=== PATIENT | female | born 1945 | race Caucasian/White ===

== ENCOUNTER → 2017-04-10 | Day surgery (SDC) | payer MEDICARE ==
[2017-04-09 12:45] LABS: BASOPHILS % 0.7 % (0.0-1.0); EOSINOPHILS # (AUTO) 0.1 (0.0-0.4); EOSINOPHILS % 1.6 % (0.0-6.0); HEMATOCRIT 37.4 % (34.2-44.1); HEMOGLOBIN 12.3 g/dL (12.0-16.0); LYMPHOCYTES # (AUTO) 2.1 (1.0-3.2); LYMPHOCYTES % 37.2 % (18.0-39.1); MEAN CORPUSCULAR HEMOGLOBIN 31.3 pg (28-32); MEAN CORPUSCULAR HGB CONC 32.9 g/dL (31-35); MEAN CORPUSCULAR VOLUME 95.2 fL (81-99); MONOCYTES # (AUTO) 0.4 (0.2-0.8); MONOCYTES % 6.3 % (4.4-11.3); NEUTROPHILS # (AUTO) 3.1 (2.1-6.9); NEUTROPHILS % 53.7 % (38.7-80.0); PLATELET COUNT 252 x10e3/uL (140-360); RED BLOOD COUNT 3.93 x10e6/uL (3.6-5.1); RED CELL DISTRIBUTION WIDTH 12.5 % (11.7-14.4)
--- NOTE | 2017-04-09 12:49 | Diagnostic Imaging Report ---
PROCEDURE: Frontal and lateral views of the chest. COMPARISON: Patients [facility], , CHEST 2 VIEWS, 12/17/2015, 12:51. INDICATIONS: PREOP FINDINGS: Lines/tubes: None. Lungs: Mild bibasilar subsegmental atelectasis associated with elevation of the right hemidiaphragm.. There is no evidence of pneumonia or pulmonary edema. Pleura: There is no pleural effusion or pneumothorax. Heart and mediastinum: The heart and the mediastinum are normal. Bones: No acute bony abnormality. Lower cervical fusion hardware. Multilevel spondylosis of the thoracic spine. IMPRESSION: 1. No acute cardiopulmonary disease. Bibasilar subsegmental atelectasis. Sandra Todd M.D. Dictated by: Sandra Todd M.D. on 04/09/2017 at 12:57 Electronically approved by: Sandra Todd M.D. on 04/09/2017 at 12:57
[2017-04-09 13:02] LABS: BLOOD UREA NITROGEN 12 mg/dL (7-26); BUN/CREATININE RATIO 17 (6-25); CALCIUM 9.6 mg/dL (8.4-10.2); CARBON DIOXIDE 27 mmol/L (22-29); CHLORIDE 106 mmol/L (98-107); CREATININE, SERUM 0.69 mg/dL (0.57-1.11); EST GLOMERULAR FILTRATION RATE > 60 ML/MIN (60-); GLUCOSE 94 mg/dL (74-118); SODIUM 141 mmol/L (136-145)
[~2017-04-10] MED LIST: ALEVE220 MG PO; AMITRIPTYLINE PO; ASPIR 8181 MG PO; ASPIRIN81 MG PO; ATIVAN0.5 MG PO; ATIVAN1 MG PO; BENEFIBER1 EAC1 PO; CEFOXITIN SOD 1 GM VIAL ONE; CICLOPIROX15 GM TOP; CLEAR EYES; CORICIDIN HBP1 EAC2 PO; DEXAMETHASONE SOD PHOS INJ 4 MG/ML VIAL ONE; DULCOLAX5 MG PO; FENTANYL CITRATE/PF 100MCG/2 ML INJ ONE; GLIMEPIRIDE1 MG PO; LEVOTHYROXINE75 MCG PO; LEVOTHYROXINE88 MCG PO; LIDOCAINE HCL 2% LOCAL INJ 5 ML SDV VIAL INJ ONE; LIDOCAINE JELLY 2% 10ML URO-JET ONE; LORAZEPAM0.5 MG PO; METFORMIN HCL500 MG PO; METOPROLOL TART25 MG PO; MIRALAX PO; MUPIROCIN22 GM TOP; OLANZAPINE5 MG PO; ONDANSETRON HCL INJ 2 MG/ML VIAL ONE; PANTOPRAZOLE SO40 MG PO; PHAZYME180 MG PO; PREMARIN0.625 MG PO; PRIMIDONE50 MG PO; PROPOFOL IV EMULSION 10 MG/ML 20 ML VIAL ONE; SEVOFLURANE INHAL SOLN 250 ML PEN BTL ONE; SIMVASTATIN20 MG PO; TRIAMCINOLONE A15 G1 TOP; TYLENOL WITH C1 EACH PO
--- NOTE | 2017-04-10 14:38 | Operative Report ---
DATE OF PROCEDURE: April 10, 2017 PREOPERATIVE DIAGNOSES: Lower abdominal pain, change in bowels, and rectal bleeding. POSTOPERATIVE DIAGNOSES: Lower abdominal pain, change in bowels, and rectal bleeding secondary to severe constipation and colonic angulation from pelvic adhesions. OPERATION PERFORMED: Colonoscopy. ANESTHESIA: General. COMPLICATIONS: None. ESTIMATED BLOOD LOSS: None. DESCRIPTION OF PROCEDURE: With the patient lying in bed in the lithotomy position under good general anesthesia, a rigid sigmoidoscope was introduced and slowly and carefully advanced. The patient had a large amount of stool in the rectum in spite of the full bowel prep that she had undergone. Also, this was aspirated; however, at about the 10 cm area, there was a very severe angulation of the rectosigmoid junction that precluded passage of the rigid scope any higher than that. Examination of the lower rectal area revealed no mucosal abnormalities. The patient had no significant hemorrhoids whatsoever. So, we decided that no hemorrhoidectomy would be needed as had been potentially planned. The rigid scope was then removed and a flexile colonoscope was introduced and slowly and carefully advanced. After significant time, we were able to get through the severe angulation in the rectosigmoid junction. This is more than likely secondary to the patient's previous pelvic surgery and maybe contributing to some degree to the patient's significant constipation issues as she may be having some problems evacuating around the severe angulation that was present in the rectosigmoid junction. The patient in spite of having had a full bowel prep had large amounts of stool throughout the colon. The scope was advanced all the way up into the right colon, but we were not able to get a good look at the mucosa because of the poor preparation, but no gross lesions were identified. The scope was then slowly and carefully withdrawn. The patient tolerated the procedure well and returned to the recovery room in stable condition. Job#: [id number] SAK
== END | disposition home or self-care (01) ==
LOC: OR 07:19
PROVIDERS: ATTEND Surgery
DX: K59.00 Constipation, unspecified (principal); I10 Essential (primary) hypertension; E11.9 Type 2 diabetes mellitus without complications; F79 Unspecified intellectual disabilities; Z01.810 Encounter for preprocedural cardiovascular examination; Z01.812 Encounter for preprocedural laboratory examination; Z01.818 Encounter for other preprocedural examination; Z79.82 Long term (current) use of aspirin
CPT/HCPCS: 36415 ×2; 45378; 71020; 80048; 82948; 85025; 93005; J0694; J1100; J2001; J2405

== ENCOUNTER → 2017-06-17 | Outpatient (CLI) | payer MEDICARE ==
[~2017-06-17] MED LIST changes: -CEFOXITIN SOD 1 GM VIAL ONE; -DEXAMETHASONE SOD PHOS INJ 4 MG/ML VIAL ONE; -FENTANYL CITRATE/PF 100MCG/2 ML INJ ONE; -LIDOCAINE HCL 2% LOCAL INJ 5 ML SDV VIAL INJ ONE; -LIDOCAINE JELLY 2% 10ML URO-JET ONE; -ONDANSETRON HCL INJ 2 MG/ML VIAL ONE; -PROPOFOL IV EMULSION 10 MG/ML 20 ML VIAL ONE; -SEVOFLURANE INHAL SOLN 250 ML PEN BTL ONE
--- NOTE | 2017-06-18 09:31 | Diagnostic Imaging Report ---
Exam: Lumbar spine MRI without IV contrast History: Low back pain with radiculopathy. Comparison studies: Lumbar spine x-ray 10/23/2016. Technique: Sagittal and axial T2 , sagittal T1 and IR, axial spin density oblique. Coronal T2. Intravenous contrast: None Findings: Number of lumbar vertebral bodies: 5. Alignment: Normal lordosis. No scoliosis. Soft tissues: No T2 hyperintense inflammatory changes. Paraspinal muscles: No signal abnormalities. Well-preserved. No atrophic changes Lower thoracic cord: Normal in signal and morphology. The tip of the conus is at L1-L2. Cauda equina: No masses. No arachnoiditis. Vertebrae: No compression fractures, infection or neoplasm. Degenerative changes: L1-L2: Mild loss of T2/STIR disc signal. Patent canal and foramina. L2-L3: Moderately degenerated disc with loss of disc height and T2 disc signal. There are degenerative endplate changes with mild degenerative endplate edema. Disc bulge, thickened ligamentum flavum and facet arthrosis result in mild to moderate canal and bilateral foraminal stenosis. L3-L4: Moderately degenerated disc. Disc bulge, thickened ligamentum flavum and facet arthrosis result in moderate canal stenosis and mild bilateral foraminal stenosis. L4-L5: Moderately degenerated disc. There are degenerative endplate changes mild endplate edema. Asymmetric right disc bulge with superimposed right subarticular and foraminal disc extrusion, thickened ligamentum flavum and facet arthrosis with moderate canal stenosis, mild bilateral foraminal stenosis (right greater than left) and right subarticular stenosis with potential compression of the right L5 nerve root. There is mild inferior migration of the disc extrusion within the right ventral epidural space. L5-S1: Mildly degenerated disc. Disc bulge asymmetric to the left, thickened ligamentum flavum and moderate bilateral facet arthrosis result in mild canal stenosis and bilateral foraminal stenosis. There is mild widening of the left facet joint by small joint effusion. IMPRESSION: 1. Multilevel disc degeneration, worse/moderate from L2 to L5. 2. Multilevel degenerative canal stenosis (mild to moderate L2-L3, moderate at L3-L4 and at L4-L5 and mild at L5-S1). 3. Potential compression of the right L5 subarticular nerve root at L4-L5 due to a disc bulge and disc extrusion. 4. Mild degenerative foraminal stenosis from L2 to S1. 5. Multilevel facet arthrosis, worse/moderate bilaterally at L5-S1. Signed by: Dr. Haris Telles M.D. on 06/18/2017 9:27 AM
== END ==
LOC: MRI 14:06
PROVIDERS: ATTEND Psychiatry & Neurology Clinical Neurophysiology
DX: M54.16 Radiculopathy, lumbar region (principal)
CPT/HCPCS: 72148

== ENCOUNTER 2017-07-30 09:32 | Observation (INO) | payer MEDICARE ==
[2017-07-28 16:21] LABS: BASOPHILS # (AUTO) 0.1 (0.0-0.1); BASOPHILS % 1.1 % (0.0-1.0); EOSINOPHILS # (AUTO) 0.1 (0.0-0.4); EOSINOPHILS % 1.8 % (0.0-6.0); HEMATOCRIT 37.4 % (34.2-44.1); LYMPHOCYTES % 34.5 % (18.0-39.1); MEAN CORPUSCULAR HEMOGLOBIN 30.1 pg (28-32); MEAN CORPUSCULAR HGB CONC 32.1 g/dL (31-35); MEAN CORPUSCULAR VOLUME 93.7 fL (81-99); MONOCYTES # (AUTO) 0.3 (0.2-0.8); MONOCYTES % 5.6 % (4.4-11.3); NEUTROPHILS # (AUTO) 3.3 (2.1-6.9); NEUTROPHILS % 56.8 % (38.7-80.0); PLATELET COUNT 231 x10e3/uL (140-360); RED BLOOD COUNT 3.99 x10e6/uL (3.6-5.1)
[2017-07-28 16:32] LABS: INR 0.96
[2017-07-28 16:33] LABS: PARTIAL THROMBOPLASTIN TIME 28.4 seconds (23.8-35.5)
[2017-07-28 16:40] LABS: ANION GAP 12.3 mmol/L (8-16); BLOOD UREA NITROGEN 16 mg/dL (7-26); BUN/CREATININE RATIO 21 (6-25); CALCIUM 9.9 mg/dL (8.4-10.2); CARBON DIOXIDE 27 mmol/L (22-29); CHLORIDE 103 mmol/L (98-107); CREATININE, SERUM 0.77 mg/dL (0.57-1.11); EST GLOMERULAR FILTRATION RATE > 60 ML/MIN (60-); GLUCOSE 120 mg/dL (74-118); POTASSIUM 4.3 mmol/L (3.5-5.1); SODIUM 138 mmol/L (136-145)
--- NOTE | 2017-07-28 16:44 | Diagnostic Imaging Report ---
PROCEDURE: X-RAY CHEST, TWO VIEWS COMPARISON: Patients [facility], DX, CHEST 2 VIEWS, 04/09/2017, 12:15. INDICATIONS: PRE-OP FINDINGS: LUNGS: No chronic appearing basilar interstitial changes are again noted. PLEURA: No effusions or pneumothorax. HEART \T\ MEDIASTINUM: The heart is within normal size-limits. BONES \T\ SOFT TISSUES: There are degenerative changes of the spine. Fixation plate overlies the lower cervical spine. CONCLUSION: No acute thoracic abnormality. Deni Baldwin D.O. Dictated by: Deni Baldwin D.O. on 07/28/2017 at 16:45 Electronically approved by: Deni Baldwin D.O. on 07/28/2017 at 16:45
[~2017-07-30] VITALS: Ht 165.1 cm; Wt 56.7 kg
[~2017-07-30 09:32] MED LIST changes: +AMITRIPTYLINE H10 MG PO; +BACITRACIN 50,000 UNIT VIAL ONE; +BUPIVACAINE 0.5%/EPI 30 ML SDV INJ ONE; +CICLODAN 0.77%544 GM TOP; +CONTOUR NEXT1 EACH; +CORICIDIN HBP1 EAC1 PO; +GELATIN SPONGE SZ 100 ONE; +JANUVIA100 MG PO; +MECLIZINE HCL12.5 MG PO; +NASOCORT; +REFRESH TEARS15 ML OP/OT; +THROMBIN FOR SOLN 5,000 UNIT VIAL ONE; +TYLENOL EXTRA500 MG PO
--- OUTSIDE RECORDS SUMMARY | 2017-07-30 09:35 | XMS REPORT ---
Author Author [facility] Address Unknown Phone Unavailable Care Team Providers Care Applications Intern Name Role Phone TRISTAN POST Unavailable Unavailable THURSDAY, BRETT Unavailable Unavailable PRADEEP GARCIA Unavailable Unavailable Problems This patient has no known problems. Allergies, Adverse Reactions, Alerts This patient has no known allergies or adverse reactions. Medications This patient has no known medications. Results Test Description Test Time Test Comments Text Results Atomic Results Result Comments CHEST [address] [facility] [address] [place] [address] Patient Name: JANE GARCIA MR #: [id number] : 1945 Age/Sex: 71/F Req #: [id number] Adm Physician: Ordered by: TRISTAN POST MD Report #: [id number] Location: OR Room/Bed: Procedure: [id number] DX/CHEST 2 VIEWS Exam Date: 07/28/17 Exam Time: 1600 REPORT STATUS: Signed PROCEDURE: X-RAY CHEST, TWO VIEWS COMPARISON: [facility], DX, CHEST 2 VIEWS, 04/09/2017, 12:15. INDICATIONS: PRE-OP FINDINGS: LUNGS: No chronic appearing basilar interstitial changes are again noted. PLEURA: No effusions or pneumothorax. HEART T MEDIASTINUM: The heart is within normal size- limits. BONES T SOFT TISSUES: There are degenerative changes of the spine. Fixation plate overlies the lower cervical spine. CONCLUSION : No acute thoracic abnormality. Devante Baldwin D.O. Dictated by: Devante Baldwin D.O. on 07/28/2017 at 16:45 Electronically approved by: Devante Baldwin D.O. on 07/28/2017 at 16:45 Dictated By: DEVANTE BALDWIN DO 44 COPY TO: TRISTAN POST MD MRI SPINE LUMBAR WO [place] [address] Patient Name: JANE GARCIA MR #: [id number] : 1945 Age/Sex: 71/F Req # : [id number] Adm Physician: Ordered by: BRETT HSU MD Report #: [id number] Location: MRI Room/Bed: Procedure: [id number] MRI/MRI SPINE LUMBAR WO Exam Date: Exam Time: REPORT STATUS: Signed Exam: Lumbar spine MRI without IV contrast History: Low back pain with radiculopathy. Comparison studies: Lumbar spine x-ray 10/23/2016. Technique: Sagittal and axial T2 , sagittal T1 and IR, axial spin density oblique. Coronal T2. Intravenous contrast: None Findings: Number of lumbar vertebral bodies: 5. Alignment: Normal lordosis. No scoliosis. Soft tissues: No T2 hyperintense inflammatory changes. Paraspinal muscles: No signal abnormalities. Well-preserved. No atrophic changes Lower thoracic cord: Normal in signal and morphology. The tip of the conus is at L1-L2. Cauda equina: No masses. No arachnoiditis. Vertebrae: No compression fractures, infection or neoplasm. Degenerative changes: L1-L2: Mild loss of T2/STIR disc signal. Patent canal and foramina. L2-L3: Moderately degenerated disc with loss of disc height and T2 disc signal. There are degenerative endplate changes with mild degenerative endplate edema. Disc bulge, thickened ligamentum flavum and facet arthrosis result in mild to moderate canal and bilateral foraminal stenosis. L3-L4: Moderately degenerated disc. Disc bulge, thickened ligamentum flavum and facet arthrosis result in moderate canal stenosis and mild bilateral foraminal stenosis. L4-L5: Moderately degenerated disc. There are degenerative endplate changes mild endplate edema. Asymmetric right disc bulge with superimposed right subarticular and foraminal disc extrusion, thickened ligamentum flavum and facet arthrosis with moderate canal stenosis, mild bilateral foraminal stenosis (right greater than left) and right subarticular stenosis with potential compression of the right L5 nerve root. There is mild inferior migration of the disc extrusion within the right ventral epidural space. L5-S1: Mildly degenerated disc. Disc bulge asymmetric to the left, thickened ligamentum flavum and moderate bilateral facet arthrosis result in mild canal stenosis and bilateral foraminal stenosis. There is mild widening of the left facet joint by small joint effusion. IMPRESSION: 1. Multilevel disc degeneration, worse/moderate from L2 to L5. 2. Multilevel degenerative canal stenosis (mild to moderate L2-L3, moderate at L3-L4 and at L4-L5 and mild at L5-S1). 3. Potential compression of the right L5 subarticular nerve root at L4-L5 due to a disc bulge and disc extrusion. 4. Mild degenerative foraminal stenosis from L2 to S1. 5. Multilevel facet arthrosis, worse/ moderate bilaterally at L5-S1. Signed by: Dr. Africa Telles M.D. on 2017 9:27 AM Dictated By: AFRICA TELLES MD 6 Transcribed By: BYRON on 06/18/17926 COPY TO: THURSDAYBRETT MD CHEST 2 VIEWS [place] [address] Patient Name: JANE GARCIA MR #: [id number] : 1945 Age/Sex: 71/F Req #: [id number] Adm Physician: Ordered by: PRADEEP GARCIA MD Report #: [id number] Location: OR Room/Bed: Procedure: [id number] DX/CHEST 2 VIEWS Exam Date: 04/09/17 Exam Time: 1220 REPORT STATUS: Signed PROCEDURE: Frontal and lateral views of the chest. COMPARISON: [facility], DX, CHEST 2 VIEWS, 2015, 12:51. INDICATIONS: PREOP FINDINGS: Lines/tubes: None. Lungs: Mild bibasilar subsegmental atelectasis associated with elevation of the right hemidiaphragm.. There is no evidence of pneumonia or pulmonary edema. Pleura: There is no pleural effusion or pneumothorax. Heart and mediastinum: The heart and the mediastinum are normal. Bones: No acute bony abnormality. Lower cervical fusion hardware. Multilevel spondylosis of the thoracic spine. IMPRESSION: 1. No acute cardiopulmonary disease. Bibasilar subsegmental atelectasis. Sandra Oseguera M.D. Dictated by: Sandra Oseguera M.D. on 2017 at 12:57 Electronically approved by: Sandra Oseguera M.D. on 04/09/2017 at 12:57 Dictated By: JEFF OSEGUERA MD, MD 1257 Transcribed By : GUSTAVO on 04/09/17 1257 COPY TO: PRADEEP GARCIA MD SPINE CERVICAL AP LAT FLEX EXT [place] [address] Patient Name: JANE GARCIA MR #: [id number] : 1945 Age/Sex: 71/F Req #: [id number] Adm Physician: Ordered by: TRISTAN POST MD Report #: [id number] Location: [facility] Room/Bed: Procedure: [id number] DX/SPINE CERVICAL AP LAT FLEX EXT Exam Date: 02/12/17 Exam Time: 1140 REPORT STATUS: Signed PROCEDURE : C-SPINE AP AND LAT WITH FLEX AND EXT COMPARISON: MRI cervical spine 12/20/16. INDICATIONS: POST CERVICAL SPINE SURGERY FINDINGS: The vertebral bodies are visualized to T1. The patient is status post anterior cervical discectomy and fusion from C4-C6. The hardware is intact without evidence of lucency to suggest loosening. The alignment is maintained on neutral lateral image. There is no evidence of motion with flexion or extension. There is disc space narrowing and endplate osteophytosis at C6-7. The facets and spinous processes are normally aligned. Alignment is maintained on AP image. The skull base and upper chest are unremarkable. There are 2 lisa posterior to C7, likely outside the patient. CONCLUSION: Postoperative changes as described above. No motion with flexion or extension. Dictated by : Goyo Henderson M.D. on 02/12/2017 at 12:56 Electronically approved by: Goyo Henderson M.D. on 02/12/2017 at 12:56 Dictated By : GOYO HENDERSON MD 1256 COPY TO: TRISTAN POST MD MRI SPINE CERVICAL WO [place] [address] Patient Name: JANE GARCIA MR #: [id number] : 1945 Age/Sex: 71/F Req # : [id number] Adm Physician: Ordered by: ARACELISBRETT PETERS MD Report #: [id number] Location: MRI Room/Bed: Procedure: [id number] MRI/MRI SPINE CERVICAL WO Exam Date: 12/19/16 Exam Time: 1550 REPORT STATUS: Signed Examination: MRI SPINE CERVICAL WITHOUT CONTRAST History: Neck pain. Spasticity, gait imbalance. Comparison studies: None Technique: Sagittal T1, T2 and IR, axial T2 and axial gradient echo intravenous contrast: None Findings: Alignment : Straightening of normal lordosis. No scoliosis. Cervicomedullary junction: No abnormalities. Patent foramen magnum. Soft tissues: No T2 hyperintense inflammatory changes. Spinal cord: Normal in size and signal from the foramen magnum through T1. Vertebrae: No fractures, infection or neoplasm. Degenerative changes: C1-C2: No abnormalities. C2-C3: Bilateral facet arthropathy and mild ligamentum flavum thickening. No foraminal or canal stenosis. C3-C4: Asymmetric to the left disc osteophyte complex and bilateral uncovertebral and left facet arthropathy result in moderate right and severe left foraminal narrowing and mild canal stenosis. C4-C5 : Diffuse disc osteophyte complex, ligamentum flavum thickening and bilateral uncovertebral arthropathy result in severe canal and bilateral foraminal stenosis. C5-C6: Asymmetric to the right disc osteophyte complex, ligamentum flavum thickening and bilateral uncovertebral arthropathy result in severe canal and severe right and moderate left foraminal stenosis. C6-C7: Asymmetric to the right disc osteophyte complex and bilateral uncovertebral arthropathy result in moderate bilateral foraminal narrowing. No canal stenosis. C7-T1: No abnormalities. IMPRESSION: 1. Degenerative changes from C2-C3 through C6-C7 with severe canal stenosis C4- C5 and C5-C6 and mild canal stenosis at C3-C4. 2. Degenerative foraminal stenosis from C3-C4 through C6-C7, as above. Signed by: Dr. Ester Voss M.D. on 12/20/2016 11:42 AM Dictated By: ESTER VOSS MD 1142 Transcribed By: BYRON on 12/20/16 1142 COPY TO: BRETT HSU MD
[2017-07-30] MEDS ORDERED: CEFAZOLIN SOD 1 GM VIAL ONE (09:58)
[2017-07-30] MEDS ORDERED: THROMBIN FOR SOLN 5,000 UNIT VIAL ONE (11:54)
[2017-07-30] MEDS ORDERED: LIDOCAINE HCL (LTA) 4 ML SOLN ONE (12:11)
[2017-07-30] MEDS ORDERED: ACETAMINOPHEN 1000 MG/100 ML 100 ML IV ONE (12:11)
[2017-07-30] MEDS: LACTATED RINGER'S 1,000 ML IV SCH ×2 (12:37→20:22)
[2017-07-30] MEDS ORDERED: MECLIZINE HCL 12.5 MG TAB PO SCH (12:45)
[2017-07-30] MEDS ORDERED: ONDANSETRON HCL INJ 2 MG/ML VIAL IV PRN (12:45)
[2017-07-30] MEDS ORDERED: MAGNESIUM/ALUMINUM/SIMETHICONE 30 ML UDC PO PRN (12:45)
[2017-07-30] MEDS ORDERED: MUPIROCIN 2% OINT 22 GM TUBE TOP SCH (12:45)
[2017-07-30] MEDS ORDERED: ZOLPIDEM TARTRATE 5 MG TAB PO PRN (12:45)
[2017-07-30] MEDS ORDERED: TRIAMCINOLONE ACET 0.1% CREAM 15 GM TUBE TOP PRN (12:45)
[2017-07-30] MEDS ORDERED: OXYCODONE/ACETAMINOPHEN 5-325 1 EACH TABLET PO PRN (12:45)
[2017-07-30] MEDS ORDERED: PROMETHAZINE HCL (IM) 25 MG/ML VIAL IM PRN (12:45)
[2017-07-30] MEDS ORDERED: ACETAMINOPHEN 325 MG TAB PO PRN (12:45)
[2017-07-30] MEDS ORDERED: MORPHINE SULFATE 5 MG/ML VIAL IM PRN (12:45)
[2017-07-30] MEDS ORDERED: TRIAMCINOLONE ACET 0.1% CREAM 15 GM TUBE TOP SCH (12:45)
[2017-07-30] MEDS ORDERED: CARISOPRODOL 350 MG TAB PO PRN (12:45)
[2017-07-30] MEDS ORDERED: MECLIZINE HCL 12.5 MG TAB PO PRN (13:00)
[2017-07-30] MEDS ORDERED: MUPIROCIN 2% OINT 22 GM TUBE TOP PRN (13:00)
[2017-07-30] MEDS ORDERED: FENTANYL CITRATE/PF 100MCG/2 ML INJ ONE ×2 (13:00→17:34)
[2017-07-30 13:52] VITALS: BP 165/72
[2017-07-30] MEDS ORDERED: CEFAZOLIN SOD 1 GM/NS 50ML 50 ML IV SCH (14:00)
--- NOTE | 2017-07-30 14:17 | Operative Report ---
DATE OF PROCEDURE: July 30, 2017 PREOPERATIVE DIAGNOSIS: Right L4-L5 disk herniation with radiculopathy. POSTOPERATIVE DIAGNOSIS: Right L4-L5 disk herniation with radiculopathy. PROCEDURE: Right L4-L5 laminotomy, medial facetectomy and microsurgical diskectomy, [id number]. ANESTHESIA: General. INDICATIONS: The patient is a woman who presents with a right L4-5 disk herniation with L5 radiculopathy and was taken to the operating room for microsurgical diskectomy. PROCEDURE: After induction of general anesthesia, the patient was placed on the operating table in prone position over a Tom frame. Lumbar region was prepped and draped in a sterile fashion. A preoperative x-ray was obtained. A small midline incision was created. Lumbar fascia was opened to the right of midline, and subperiosteal dissection was carried out to expose the right side of the L4 and L5 laminae and the medial aspect of the facet joint. A 2nd x-ray confirmed correct localization. The operating microscope was brought in. A high-speed drill equipped with a roberto bur was used to drill the inferior aspect of lamina of L4, the medial rim of the L4-5 facet joint and the superior aspect of the lamina of L5 on the right side. The ligamentum flavum was resected, and the dura and the right L5 nerve root were exposed. Nerve root was slightly retracted medially. The herniated disk material came into view. The posterior annulus of the disk and posterior longitudinal ligament were incised, and the subligamentous disk herniation was retrieved and removed. The loose contents of the disk were evacuated with curettes and pituitary rongeurs. Meticulous hemostasis was secured. The incision was closed with #0 and 2-0 Vicryl sutures and 3-0 Monocryl sutures. A dressing was applied. The patient was awakened, extubated and taken to the postanesthesia care unit in stable condition. No intraoperative complications were encountered. Estimated blood loss was minimal. Job#: [id number]
[2017-07-30] MEDS: HYDROMORPHONE 2MG/ML INJ IV PRN ×2 (14:41→20:19)
[2017-07-30 14:50] VITALS: BP 165/72
[2017-07-30 15:34] VITALS: BP 134/56
[2017-07-30] MEDS ORDERED: METFORMIN HCL 500 MG TAB PO SCH (17:00)
[2017-07-30] MEDS ORDERED: NON-FORMULARY MEDICATION (Naproxen Sodium (Aleve) 220 MG) PO SCH (17:00)
[2017-07-30] MEDS: CEFAZOLIN SOD 1 GM VIAL IV SCH (17:10)
[2017-07-30] MEDS: METOPROLOL TARTRATE 25 MG TAB PO SCH (17:10)
[2017-07-30] MEDS ORDERED: EPHEDRINE SULFATE INJ 50 MG/10 ML SYR ONE (17:18)
[2017-07-30] MEDS ORDERED: DESFLURANE 240 ML BTL INH ONE (17:18)
[2017-07-30] MEDS ORDERED: LIDOCAINE HCL 2% JELLY 5 ML TUBE ONE (17:18)
[2017-07-30] MEDS ORDERED: PROPOFOL IV EMULSION 10 MG/ML 20 ML VIAL ONE (17:18)
[2017-07-30] MEDS ORDERED: DEXAMETHASONE SOD PHOS INJ 4 MG/ML VIAL ONE (17:18)
[2017-07-30] MEDS ORDERED: LIDOCAINE HCL 2% LOCAL INJ 5 ML SDV VIAL INJ ONE (17:18)
[2017-07-30] MEDS ORDERED: ROCURONIUM BROMIDE 10 MG/ML 5ML VIAL ONE (17:18)
[2017-07-30] MEDS ORDERED: ONDANSETRON HCL INJ 2 MG/ML VIAL ONE (17:18)
[2017-07-30 20:00] VITALS: BP 130/63
[2017-07-30] MEDS ORDERED: AMITRIPTYLINE HCL 25 MG TAB PO SCH (21:00)
[2017-07-30] MEDS ORDERED: PHAZYME PO SCH (21:00)
[2017-07-30] MEDS ORDERED: SIMVASTATIN 20 MG TAB PO SCH (21:00)
[2017-07-30] MEDS ORDERED: SIMETHICONE 250 MG PO SCH (21:00)
[2017-07-31] VITALS: BP 117/55
[2017-07-31] MEDS: CEFAZOLIN SOD 1 GM VIAL IV SCH ×2 (00:35→08:00)
[2017-07-31] MEDS: HYDROMORPHONE 2MG/ML INJ IV PRN (03:09)
[2017-07-31 04:00] VITALS: BP 119/56
[2017-07-31] MEDS ORDERED: LEVOTHYROXINE SODIUM 75 MCG TAB PO SCH ×2 (06:00→09:00)
[2017-07-31 07:40] VITALS: BP 119/56
[2017-07-31] MEDS: METOPROLOL TARTRATE 25 MG TAB PO SCH (07:59)
[2017-07-31 08:00] VITALS: BP 116/56
[2017-07-31] MEDS ORDERED: METFORMIN HCL 500 MG TAB PO SCH (08:00)
[2017-07-31] MEDS ORDERED: SIMVASTATIN 20 MG TAB PO SCH (09:00)
[2017-07-31] MEDS ORDERED: AMITRIPTYLINE HCL 10 MG TAB PO SCH (09:00)
[2017-07-31] MEDS ORDERED: PANTOPRAZOLE SOD 40 MG TABEC PO SCH (09:00)
[2017-07-31] MEDS ORDERED: SITAGLIPTIN 100 MG TAB PO SCH (09:00)
== END 2017-07-31 09:31 | disposition home or self-care (01) ==
LOC: OR 09:32 → IMCU 13:02
PROVIDERS: ADMIT Neurological Surgery; ATTEND Neurological Surgery
DX: M51.16 Intervertebral disc disorders with radiculopathy, lumbar region (principal); E11.9 Type 2 diabetes mellitus without complications; I10 Essential (primary) hypertension; E78.5 Hyperlipidemia, unspecified; E03.9 Hypothyroidism, unspecified; K21.9 Gastro-esophageal reflux disease without esophagitis
CPT/HCPCS: 36415 ×3; 63047; 71046; 72020; 80048; 82948 ×2; 85025; 85610; 85730; 86850; 86900; 88304; 93005; G0378 ×2; J0690 ×2; J1100; J1170 ×2; J2001 ×2; J2270; J2405

== ENCOUNTER 2018-04-19 14:00 | Outpatient (RCR) | payer MEDICARE ==
[~2018-04-19 14:00] MED LIST changes: -BACITRACIN 50,000 UNIT VIAL ONE; -BUPIVACAINE 0.5%/EPI 30 ML SDV INJ ONE; -GELATIN SPONGE SZ 100 ONE; -THROMBIN FOR SOLN 5,000 UNIT VIAL ONE
--- NOTE | 2018-04-19 15:49 | NUR ---
Patient Name: Mounika Bello: 1945 Age/Sex: 72/femaleOrdering Physician: Justice Paez MD Clinical Swallow Evaluation/Initial Treatment Session Patient is a 72 year old female with diagnosis of dysphagia and orders for NMES to treat dysphagia after OP MBS at [facility]. Patient completed a modified barium swallow (MBS) study on 02/15/18. Thin liquids, nectar thick liquids, thin puree, thick puree, mixed texture and cracker trials administered. Pt presented with moderate oral dysphagia and mild pharyngeal dysphagia c/b premature spillage to the valleculae and moderate valleculear residue following PO trials. Double swallow an effective strategy in clearing pharyngeal residue. Dysphagia judged to be secondary to tongue base weakness. Recommendation made for Neuromuscular Electrical Stimulation (NMES) with VitalStim Therapy and traditional dysphagia therapy with pharyngeal exercises. Pt was seen with family present. Oral motor exam revealed function with mild deficits, lingual movement and strength reduced. Patient tolerates room air. Hearing appeared to be WFL. Speech and language skills were reduced at baseline with limited verbalizations and moderate receptive deficits present. Family reports recent slowed PO intake. Provided extensive education re: need for therapy, purpose of exercises and NMES, and future plan of care. Pt indicated understanding. Education provided as indicated. All questions were answered. Pt indicated that they can attend therapy 3x/week x 4 weeks Impressions: Pt presents with mild-mod dysphagia characterized by moderate pharyngeal residue and premature spillage. Pt is an excellent candidate for dysphagia exercises and NMES for improvement of strength and coordination of swallow. Recommendations: 1.Dysphagia therapy to include traditional exercises and NMES 3X/week for 4 weeks for a total of 12 treatment sessions 2.Home exercise program 3.Repeat MBS in 4 weeks with new goals to be determined at that time [employer] Goal: Pt will tolerate least restrictive diet without s/s of aspiration as judged by an objective evaluation. Short Term Goals: 1.Pt will complete 3 repetitions of a set of dysphagia exercises to improve laryngeal elevation, base of tongue retraction, and laryngeal closure, 10 repetitions per exercise, with minimal cues. 2.Pt will tolerate NMES for 45 60 minutes with no clinical s/s of aspiration to improve strength of pharyngeal constrictors, hyolaryngeal excursion, and safety with po intake. 3.Pt will complete home dysphagia exercise program targeting laryngeal elevation, base of tongue strength, and cricopharyngeal function independently. 4.Pt will follow aspiration precautions with independence. 5.Pt will participate in a repeat Modified Barium Swallow study to objectively re-assess swallow safety and function and determine safest diet. Marry Oliveira M.S. [facility] Date of Session: 04/19/18 Dysphagia Evaluation/initial treatment session X 60 minutes Physicians signature below certifies medical necessity for these skilled interventions Physician SignatureDate NOMS Rating for Swallowing: Level 5
--- NOTE | 2018-04-19 15:55 | NUR ---
TX NOTES to accompany clinical swallow evaluation from 04/19/18 S: Pt alert and cooperative, no c/o pain, family present O:Short Term Goals: 1.Pt will complete 3 repetitions of a set of dysphagia exercises to improve laryngeal elevation, base of tongue retraction, and laryngeal closure, 10 repetitions per exercise, with minimal cues. Completed 2.Pt will tolerate NMES for 45 60 minutes with no clinical s/s of aspiration to improve strength of pharyngeal constrictors, hyolaryngeal excursion, and safety with po intake. Placement 3b was used to target the mylohyoid muscle, the anterior belly of the digastric muscle, the sternohyoid muscle, the omohyoid muscle, the geniohyoid muscle, and the middle pharyngeal constrictors. Channel 1 of the electrodes was aligned horizontally just above the hyoid bone and channel 2 of the electrodes was aligned horizontally at the level of the thyroid notch. This placement was used to improve base of tongue strength, pharyngeal constriction, and UES function. Pt tolerated 11.5 mA for 50 minutes while drinking thin liquids, eating pudding and hard candy. Throat clear x 15 and cough x 1 3.Pt will complete home dysphagia exercise program targeting laryngeal elevation, base of tongue strength, and cricopharyngeal function independently. To be discussed at next treatment session 4.Pt will follow aspiration precautions with independence. Discussed with family member, famlily member reported pt can not follow commands well 5.Pt will participate in a repeat Modified Barium Swallow study to objectively re-assess swallow safety and function and determine safest diet. Not yet indicated A: Pt tolerated session well, currently has low mA tolerance beginning at 6.0 mA and ending session at 11.5 mA. Pt ate pudding quickly with no outward s/s of distress. TC noted to last the rest of the session. P: CPOC, report faxed to Dr. Justice Paez MD
--- NOTE | 2018-05-03 09:21 | NUR ---
ST NOTE: Pt unable to attend therapy today, her cat is ill and she has a vet apt at the time of her ST visit, she will return on Thursday
== END 2018-05-06 ==
LOC: ST 14:00
PROVIDERS: ATTEND Otolaryngology
DX: R13.10 Dysphagia, unspecified (principal)
CPT/HCPCS: 97139

== ENCOUNTER → 2018-10-09 | Day surgery (SDC) | payer MEDICARE ==
[2018-10-05 17:05] LABS: BASOPHILS # (AUTO) 0.1 (0.0-0.1); BASOPHILS % 0.9 % (0.0-1.0); EOSINOPHILS # (AUTO) 0.1 (0.0-0.4); EOSINOPHILS % 2.1 % (0.0-6.0); HEMATOCRIT 35.2 % (34.2-44.1); LYMPHOCYTES # (AUTO) 2.2 (1.0-3.2); LYMPHOCYTES % 38.2 % (18.0-39.1); MEAN CORPUSCULAR HEMOGLOBIN 28.7 pg (28-32); MEAN CORPUSCULAR HGB CONC 31.3 g/dL (31-35); MEAN CORPUSCULAR VOLUME 91.9 fL (81-99); MONOCYTES # (AUTO) 0.4 (0.2-0.8); MONOCYTES % 7.6 % (4.4-11.3); NEUTROPHILS # (AUTO) 2.9 (2.1-6.9); NEUTROPHILS % 50.9 % (38.7-80.0); PLATELET COUNT 248 x10e3/uL (140-360); RED BLOOD COUNT 3.83 x10e6/uL (3.6-5.1); RED CELL DISTRIBUTION WIDTH 14.3 % (11.7-14.4)
[~2018-10-09] MED LIST changes: +ARICEPT5 MG PO; +FENTANYL CITRATE/PF 100MCG/2 ML INJ ONE; +JENTADUETO 2.51 EAC2 PO; +LIDOCAINE HCL 2% LOCAL INJ 5 ML SDV VIAL INJ ONE; +NATEGLINIDE60 MG PO; +PROPOFOL IV EMULSION 10 MG/ML 50 ML VIAL ONE; +RANITIDINE HCL300 M1 PO
[2018-10-09 08:50] VITALS: BP 159/76
--- NOTE | 2018-10-09 13:01 | Operative Report ---
DATE OF PROCEDURE: 10/09/2018 SURGEON: Maverick Linn MD PROCEDURE: Esophagogastroduodenoscopy with biopsies and esophageal dilatation. INDICATIONS FOR EGD: Dysphagia to solids. MEDICATION: The patient was done under MAC, please see anesthesiologist's note. PROCEDURE IN DETAIL: With the patient in left lateral decubitus position, flexible fiberoptic Olympus gastroscope was introduced into the esophagus under direct visualization without any difficulty. There was some patchy erythema noted in distal esophagus. There was a mild stricture noted at the GE junction that was dilated to size 52-[place] Villalobos. The scope was then advanced with ease into the stomach traversing a small sliding hiatal hernia. Mucosa overlying the antrum and the body revealed some patchy erythema and [id number] edema and biopsies were obtained and sent to stain for H pylori. Several hyperplastic-appearing polyps were noted in the body of the stomach and some were partially excised with the cold biopsy forceps. Pylorus was of normal contour and shape, it was intubated with ease and the scope was advanced all the way to the second portion of the duodenum. The scope was then withdrawn slowly and mucosa overlying the proximal second portion and the duodenal bulb appeared to be within normal limits. The scope was then withdrawn back into the stomach and retroflexed and mucosa overlying the fundus and the cardia appeared to be within normal limits. The scope was then straightened out, it was subsequently withdrawn. The patient tolerated procedure well. IMPRESSION: 1. Distal esophagitis, mild. 2. Esophageal stricture at GE junction, dilated to size 52-[place] Villalobos. 3. Small sliding hiatal hernia. 4. Gastritis, biopsied, biopsies sent to stain for H pylori. 5. Gastric polyps, body, hyperplastic appearing, some partially excised with the cold biopsy forceps. PLAN: Follow up histology. Continue Protonix 40 mg one p.o. q.a.m. a.c. Maverick Linn MD [facility]/JIML /[id number] cc: Keyshawn Linn MD
--- OUTSIDE RECORDS SUMMARY | 2018-10-11 12:13 | XMS REPORT | Continuity of Care Document ---
Author Author [employer] Address Unknown Phone Unavailable Care Team Providers Care Capacity Analyst Name Role Phone [facility] Information [facility] Unavailable Unavailable Problems No Data Provided for This Section Medications Medication Details Route Status Patient Instructions Ordering Provider Order Date Source Bisacodyl (Dulcolax) 5 Mg Tablet., Mg Oral Bedtime Active 07/28/2017 [facility] Blood Sugar Diagnostic (Contour Next) 1 Each Strip, Active 07/28/2017 [facility] Clear Eyes , Active 07/28/2017 [facility] Glimepiride 1 Mg Tablet, 1 Mg Oral Daily Active 07/28/2017 [facility] Simethicone (Phazyme) 180 Mg Capsule, 250 Mg Oral Daily Active 07/28/2017 [facility] Lorazepam 0.5 Mg Tablet, 0.5 Mg Oral Four Times Daily Active 04/10/2017 [facility] Miralax , Oral As Needed Active 04/10/2017 [facility] Mupirocin 22 Gm Oint...g., 22 Gm Topically As Needed Active 04/10/2017 [facility] Primidone 50 Mg Tablet, 50 Mg Oral Twice A Day Active 04/10/2017 [facility] Wheat Dextrin (Benefiber) 1 Each Powd.pack, 2 Tbs Oral Daily Active 04/10/2017 [facility] Aspirin (Aspir 81) 81 Mg Tablet., 81 Mg Oral Daily Active 12/21/2015 [facility] Ciclopirox Olamine (Ciclopirox) 15 Gm Cream..g., 15 Gm Topically As Needed Active 12/21/2015 [facility] Guaifenesin/Dextromethorphan (Coricidin Hbp Softgel) 1 Each Capsule, Oral As Needed Active 12/21/2015 [facility] Amitriptyline , Oral Bedtime Active 12/19/2015 [facility] Lorazepam (Ativan) 1 Mg Tablet, 1 Mg Oral Bedtime Active 12/19/2015 [facility] Levothyroxine Sodium 88 Mcg Tablet, 0.075 Mcg Oral Daily Active 08/09/2015 [facility] Lorazepam (Ativan*) 0.5 Mg Tablet, 0.5 Mg Oral Three Times A Day as needed for Agitation Active 08/09/2015 [facility] Estrogens Conjugated (Premarin) 0.625 Mg Tab, 0.625 Mg Oral Daily Active 12/27/2014 [facility] Olanzapine 5 Mg Tablet, 5 Mg Oral Bedtime Active 12/27/2014 [facility] Acetaminophen (Tylenol Extra Strength) 500 Mg Tablet As Needed Active [facility] Acetaminophen With Codeine (Tylenol With Codeine #3 Tablet) 1 Each Tablet As Needed Active [facility] Acetaminophen/Chlorpheniramine (Coricidin Hbp Cold & Flu Tab) 1 Each Tablet As Needed Active [facility] Amitriptyline Hcl 10 Mg Tablet Daily Active [facility] Aspirin 81 Mg Tab.chew Daily Active [facility] Carboxymethylcellulose Sodium (Refresh Tears) 15 Ml Drops As Needed Active [facility] Ciclopirox/Skin Cleanser No.28 (Ciclodan 0.77% Cream Kit) 544 Gm Combo..pkg As Needed Active [facility] Levothyroxine Sodium 75 Mcg Tablet Daily Active [facility] Meclizine Hcl 12.5 Mg Tablet As Needed Active [facility] Metformin Hcl 500 Mg Tablet Twice A Day Active [facility] Metoprolol Tartrate 25 Mg Tablet Twice A Day Active [facility] Mupirocin 22 Gm Oint...g. As Needed Active [facility] Naproxen Sodium (Aleve) 220 Mg Tablet Twice A Day Active [facility] Nasocort As Needed Active [facility] Pantoprazole Sodium (Protonix) 40 Mg Tablet.dr Daily Active [facility] Simethicone (Phazyme) 180 Mg Capsule Bedtime Active [facility] Simvastatin 20 Mg Tablet Daily Active [facility] Sitagliptin Phosphate (Januvia) 100 Mg Tablet Daily Active [facility] Triamcinolone Acet (Triamcinolone Acetonide) 15 Gm Cr Active [facility] Allergies, Adverse Reactions, Alerts Substance Category Reaction Severity Reaction type Status Date Reported Comments Source Nitrofurantoin ORAL RASH, AND THROAT SWELLS Severe Allergy to Substance Active 12/29/2014 [facility] Immunizations No Data Provided for This Section Results Order Name Results Value Reference Range Date Interpretation Comments Source Capillary blood glucose measurement by glucometer (mass/volume) Capillary blood glucose measurement by glucometer (mass/volume) 175 70 - 120 07/31/2017 [facility] Activated partial thromboplastin time (aPTT) in platelet poor plasma bycoagulation assay Activated partial thromboplastin time (aPTT) in platelet poor plasma bycoagulation assay 28.4 23.8 - 35.5 07/28/2017 [facility] Automated blood basophil count (count/volume) Automated blood basophil count (count/volume) 0.1 0.0 - 0.1 07/28/2017 [facility] Automated blood basophil count as percentage of total leukocytes Automated blood basophil count as percentage of total leukocytes 1.1 0.0 - 1.0 07/28/2017 [facility] Automated blood eosinophil count Automated blood eosinophil count 0.1 0.0 - 0.4 07/28/2017 [facility] Automated blood eosinophil count as percentage of total leukocytes Automated blood eosinophil count as percentage of total leukocytes 1.8 0.0 - 6.0 07/28/2017 [facility] Automated blood hematocrit (volume fraction) Automated blood hematocrit (volume fraction) 37.4 34.2 - 44.1 07/28/2017 [facility] Automated blood lymphocyte count as percentage ot total leukocytes Automated blood lymphocyte count as percentage ot total leukocytes 34.5 18.0 - 39.1 07/28/2017 [facility] Automated blood monocyte count as percentage of total leukocytes Automated blood monocyte count as percentage of total leukocytes 5.6 4.4 - 11.3 07/28/2017 [facility] Automated blood neutrophil count Automated blood neutrophil count 3.3 2.1 - 6.9 07/28/2017 [facility] Automated blood platelet count (count/volume) Automated blood platelet count (count/volume) 231 140 - 360 07/28/2017 [facility] Automated blood segmented neutrophil count as percentage of total leukocytes Automated blood segmented neutrophil count as percentage of total leukocytes 56.8 38.7 - 80.0 07/28/2017 [facility] Automated erythrocyte mean corpuscular hemoglobin (mass per erythrocyte) Automated erythrocyte mean corpuscular hemoglobin (mass per erythrocyte) 30.1 28 - 32 07/28/2017 [facility] Automated erythrocyte mean corpuscular hemoglobin concentration measurement (mass/volume) Automated erythrocyte mean corpuscular hemoglobin concentration measurement (mass/volume) 32.1 31 - 35 07/28/2017 [facility] Automated erythrocyte mean corpuscular volume Automated erythrocyte mean corpuscular volume 93.7 81 - 99 07/28/2017 [facility] Blood erythrocytes automated count (number/volume) Blood erythrocytes automated count (number/volume) 3.99 3.6 - 5.1 07/28/2017 [facility] Blood hemoglobin measurement (moles/volume) Blood hemoglobin measurement (moles/volume) 12.0 12.0 - 16.0 07/28/2017 [facility] Blood leukocytes automated count (number/volume) Blood leukocytes automated count (number/volume) 5.71 4.8 - 10.8 07/28/2017 [facility] Blood lymphocytes count (number/volume) Blood lymphocytes count (number/volume) 2.0 1.0 - 3.2 07/28/2017 [facility] Blood monocytes automated count (number/volume) Blood monocytes automated count (number/volume) 0.3 0.2 - 0.8 07/28/2017 [facility] Estimated glomerular filtration rate (GFR) determination Estimated glomerular filtration rate (GFR) determination >60 60 07/28/2017 [facility] Glucose measurement Glucose measurement 120 74 - 118 07/28/2017 [facility] INR in Platelet poor plasma by Coagulation assay INR in Platelet poor plasma by Coagulation assay 0.96 07/28/2017 [facility] Prothrombin time (PT) in platelet poor plasma by coagulation assay Prothrombin time (PT) in platelet poor plasma by coagulation assay 12.0 11.9 - 14.5 07/28/2017 [facility] Serum or plasma anion gap Serum or plasma anion gap 12.3 8 - 16 07/28/2017 [facility] Serum or plasma calcium measurement (mass/volume) Serum or plasma calcium measurement (mass/volume) 9.9 8.4 - 10.2 07/28/2017 [facility] Serum or plasma carbon dioxide, total measurement (moles/volume) Serum or plasma carbon dioxide, total measurement (moles/volume) 27 22 - 29 07/28/2017 [facility] Serum or plasma chloride measurement (moles/volume) Serum or plasma chloride measurement (moles/volume) 103 98 - 107 07/28/2017 [facility] Serum or plasma creatinine measurement (mass/volume) Serum or plasma creatinine measurement (mass/volume) 0.77 0.57 - 1.11 07/28/2017 [facility] Serum or plasma potassium measurement (moles/volume) Serum or plasma potassium measurement (moles/volume) 4.3 3.5 - 5.1 07/28/2017 [facility] Serum or plasma sodium measurement (moles/volume) Serum or plasma sodium measurement (moles/volume) 138 136 - 145 07/28/2017 [facility] Serum or plasma urea nitrogen measurement (mass/volume) Serum or plasma urea nitrogen measurement (mass/volume) 16 7 - 26 07/28/2017 [facility] Serum or plasma urea nitrogen/creatinine mass ratio Serum or plasma urea nitrogen/creatinine mass ratio 21 6 - 25 07/28/2017 [facility] Red Cell Distribution Width 13.0 11.7 - 14.4 07/28/2017 [facility] IM GRANULOCYTES % 0.2 0.0 - 1.0 07/28/2017 [facility] Absolute Immature Granulocyte (auto 0.01 0 - 0.1 07/28/2017 [facility] Pathology Reports No Data Provided for This Section Diagnostic Reports No Data Provided for This Section Consultation Notes No Data Provided for This Section Discharge Summaries No Data Provided for This Section History and Physicals No Data Provided for This Section Vital Signs No Data Provided for This Section Encounters Location Location Details Encounter Type Encounter Number Reason For Visit Attending Provider ADM Date DC Date Status Source Registered Clinic [id number] BRETT HSU MD 10/23/2016 [facility] Registered Clinic [id number] BRETT HSU MD 12/19/2016 [facility] Registered [facility] [id number] TRISTAN POST MD 02/12/2017 [facility] Registered [facility] [id number] PRADEEP GARCIA MD 04/10/2017 [facility] Registered Clinic [id number] BRETT HSU MD 06/17/2017 [facility] Discharged Inpatient (obs) [id number] TRISTAN POST MD 07/30/2017 07/31/2017 [facility] Procedures Procedure Code Date Perfomer Comments Source Lumbar laminectomy [id number] 07/30/2017 [facility] X-ray of chest, two views [id number] 07/28/2017 [facility] Magnetic resonance imaging of lumbar spine without contrast [id number] 06/17/2017Thursday [facility] DIAGNOSTIC COLONOSCOPY [id number] 04/10/2017 [facility] X-ray of chest, two views [id number] 04/09/2017 [facility] Magnetic resonance imaging of cervical spine without contrast [id number] 12/19/2016Thursday [facility] Computed tomography of brain without radiopaque contrast [id number] 10/23/2016Thursday [facility] Assessment and Plan No Data Provided for This Section Plan of Care Plan of Care Date Source Discharge Date 07/31/17 9:31am Disposition HOME, SELF-CARE Instructions/Education Provided Infection Control Post Operative Pain Prescriptions See Medication Section Referrals TRISTAN POST MD (Neurology) Order Date: 7-10 Days Entered Date: 07/31/2017 8:09am Address: [address] [place] [address] [address] [place] [address] Additional Instructions/Education SEE ATTACHED INSTRUCTIONS FROM 07/31/2017 [facility] Social History Social History Date Source Social History Problem Response Recorded Date/Time Onset Date Status Hx Psychiatric Problems Y - MENTALLY UNSTABLE 07/30/2017 2:46pm Not Applicable Not Applicable Hx Eating Disorder No 07/30/2017 2:46pm Not Applicable Not Applicable Hx Substance Use Disorder No 07/30/2017 2:46pm Not Applicable Not Applicable Hx Depression No 07/30/2017 2:46pm Not Applicable Not Applicable Hx Alcohol Use No 07/30/2017 2:46pm Not Applicable Not Applicable Hx Substance Use Treatment No 07/30/2017 2:46pm Not Applicable Not Applicable Hx Physical Abuse No 07/30/2017 2:46pm Not Applicable Not Applicable 07/31/2017 [facility] Family History No Data Provided for This Section Advance Directives Order Name Results Value Date Source Advance Directives Advance Directives Directive Response Recorded Date/Time Does the patient have an advance directive? Yes 07/30/17 2:46pm If yes, is advance directive on file with [facility]? Yes 07/30/17 2:46pm If not on file with [facility] will patient provide a copy? Yes 07/28/17 2:53pm Do you have a Directive to Physician? Yes 07/28/17 2:53pm Do you have a Medical Power of [employer]? Yes 07/28/17 2:53pm Do you have an out of hospital Do Not Resuscitate Order? Yes 07/28/17 2:53pm Do you have any special needs we should be aware of? No 07/28/17 2:53pm Do you have a support person here with you today? No 07/28/17 2:53pm Did patient receive Notice of Privacy Practices? Yes 07/28/17 2:53pm Did patient receive patient rights and responsibilities? Yes 07/28/17 2:53pm 07/31/2017 [facility] Functional Status No Data Provided for This Section
== END | disposition home or self-care (01) ==
LOC: OR 05:58
PROVIDERS: ATTEND Internal Medicine Gastroenterology
DX: K22.2 Esophageal obstruction (principal); K31.7 Polyp of stomach and duodenum; K62.1 Rectal polyp; K29.70 Gastritis, unspecified, without bleeding; K20.9 Esophagitis, unspecified; K44.9 Diaphragmatic hernia without obstruction or gangrene; K21.9 Gastro-esophageal reflux disease without esophagitis; I10 Essential (primary) hypertension; E11.9 Type 2 diabetes mellitus without complications; E03.9 Hypothyroidism, unspecified; Z88.2 Allergy status to sulfonamides; Z88.1 Allergy status to other antibiotic agents; Z01.810 Encounter for preprocedural cardiovascular examination; Z01.812 Encounter for preprocedural laboratory examination; Z79.84 Long term (current) use of oral hypoglycemic drugs; Z79.82 Long term (current) use of aspirin; Z85.828 Personal history of other malignant neoplasm of skin
CPT/HCPCS: 36415 ×2; 43239; 43450; 82948; 85025; 88305; 88312; 93005; J2001; J2704; J3010

== ENCOUNTER → 2018-12-10 | Outpatient (CLI) | payer MEDICARE ==
[~2018-12-10] MED LIST changes: -FENTANYL CITRATE/PF 100MCG/2 ML INJ ONE; -LIDOCAINE HCL 2% LOCAL INJ 5 ML SDV VIAL INJ ONE; -PROPOFOL IV EMULSION 10 MG/ML 50 ML VIAL ONE
--- NOTE | 2018-12-10 14:46 | Diagnostic Imaging Report ---
EXAMINATION: Head CT HISTORY: New daily persistent headache COMPARISON: Head CT 10/23/2016 TECHNIQUE: Multidetector axial images were obtained without contrast from the foramen magnum to the vertex . The images were reconstructed using brain and bone algorithms. Thin section brain images were reformatted into coronal and sagittal planes. Image quality: Motion/streaking artifact limits the evaluation of the skull base and posterior cranial fossa. Dose modulation, iterative reconstruction, and/or weight based adjustment of the mA/kV was utilized to reduce the radiation dose to as low as reasonably achievable. FINDINGS: Parenchyma: 1. Few scattered and mildly confluent periventricular white matter hypodensities, most likely nonspecific chronic medical imaging, stable compared to prior head CT. 2. Unchanged tiny chronic lacunar infarct in the left head of the caudate (extending to the anterior limb of the left internal capsule) and right anterior lentiform nuclei. 3. No mass or hemorrhage. No CT evidence of acute territorial vascular insult. Extra-axial spaces:No abnormal density. No extra-axial fluid collections Brain volume: Normal for age. Ventricles: No hydrocephalus or displacement. Arteries: No density suggestive of thrombus. Dural sinuses: No abnormal density. Extra-axial spaces: No abnormal density. Foramen magnum: No mass, Chiari malformation, or basilar invagination. Sella: No obvious mass. Paranasal/mastoid sinuses: Imaged portions unremarkable. Skull/Scalp: No lytic or blastic lesions. No fractures. IMPRESSION: 1. No acute intracranial abnormalities. Unchanged compared to head CT of 10/23/2016. 2. Stable mild chronic microvascular ischemic changes and tiny chronic lacunar infarcts. Signed by: Dr. Jolly Ralph M.D. on 12/10/2018 2:43 PM
== END ==
LOC: CT 13:37
DX: G44.52 New daily persistent headache (NDPH) (principal)
CPT/HCPCS: 70450

== ENCOUNTER → 2019-11-15 | Outpatient (CLI) | payer MEDICARE ==
--- NOTE | 2019-11-15 14:04 | Diagnostic Imaging Report ---
EXAMINATION: HIP RIGHT 2-3 VW (+/- PELVIS) INDICATION: Right hip pain COMPARISON: Right hip radiographs of 05/16/2016 FINDINGS: AP and frog-leg radiographs of the right hip demonstrate no acute fracture or dislocation. Alignment is anatomic. Moderate degenerative changes of the right hip joint with joint space narrowing and small osteophyte formation. Atherosclerotic arterial calcifications. IMPRESSION: No acute osseous injury. Moderate right hip degenerative changes. Signed by: Wan Lebron MD on 11/15/2019 2:00 PM
--- NOTE | 2019-11-15 23:34 | Diagnostic Imaging Report ---
Examination: MRI SPINE LUMBAR WO CONTRAST History: ^LUMBAR RADICULOPATHY Comparison studies: Lumbar spine MRI dated 06/07/2017 Technique: Sagittal, coronal and axial T2 , sagittal T1 and STIR; axial spin density oblique. Findings: Number of lumbar vertebral bodies: Five. Alignment: Normal lordosis. No scoliosis. Soft tissues: No T2 hyperintense inflammatory changes. Posterior paraspinal soft tissues and muscles: No abnormality. Lower thoracic cord: Normal in signal and morphology. The tip of the conus is at L1-L2. Cauda equina: No masses. No arachnoiditis. Vertebrae: No fractures, infection or neoplasm. Type I Modic change of the anterior inferior endplate of L4, new from prior. Degenerative changes: L1-L2: Diffuse disc bulge, bilateral facet arthropathy. No canal or foraminal stenosis. L2-L3: Central disc protrusion and asymmetric to the left disc bulge, bilateral facet arthropathy result in moderate canal stenosis and mild right and moderate left foraminal narrowing. L3-L4: Diffuse disc bulge, bilateral facet arthropathy result in moderate canal stenosis and mild bilateral foraminal narrowing. L4-L5: Asymmetric to the right disc bulge, bilateral facet arthropathy result in new severe right and unchanged mild left foraminal narrowing New right laminectomy with removal of disc extrusion. L5-S1: Asymmetric to the left disc bulge, severe bilateral facet arthropathy result in mild bilateral foraminal narrowing and mild canal stenosis. IMPRESSION: Interval right laminectomy at L4-L5 and removal of prior disc extrusion when compared to prior spine MRI dated 06/17/2017. New severe right foraminal narrowing at L4-L5. Unchanged moderate canal stenosis at L2-L3 and L3-L4 and mild canal stenosis at L5-S1. Signed by: Dr. Ester Art M.D. on 11/15/2019 11:31 PM
== END ==
LOC: MRI 12:24
PROVIDERS: ATTEND Psychiatry & Neurology Clinical Neurophysiology
DX: M25.551 Pain in right hip (principal); M54.16 Radiculopathy, lumbar region
CPT/HCPCS: 36415; 72148; 82948

== ENCOUNTER 2021-09-11 14:38 | Emergency (ER) | payer MEDICARE ==
[~2021-09-11] VITALS: Ht 162.6 cm; Wt 64.4 kg
[2021-09-11] MEDS ORDERED: MAALOX/LIDOCAINE/BENADRYL/NYST 30 ML BTL PO ONE (15:00)
[2021-09-11] MEDS ORDERED: ONDANSETRON HCL INJ 2MG/ML 2ML 2 MG/ML VIAL IV PRN (15:00)
[2021-09-11] MEDS ORDERED: Morphine 4mg Syringe 4 MG/ML INJ IV PRN (15:00)
[2021-09-11] MEDS ORDERED: SODIUM CHLORIDE 0.9% 1000ML 1,000 ML IV ONE (15:00)
[2021-09-11 15:13] LABS: BASOPHILS # (AUTO) 0.1 (0.0-0.1); BASOPHILS % 1.1 % (0.0-1.0); EOSINOPHILS # (AUTO) 0.2 (0.0-0.4); EOSINOPHILS % 2.1 % (0.0-6.0); HEMOGLOBIN 10.9 g/dL (12.0-16.0); LYMPHOCYTES # (AUTO) 2.1 (1.0-3.2); LYMPHOCYTES % 29.8 % (18.0-39.1); MEAN CORPUSCULAR HEMOGLOBIN 29.4 pg (28-32); MEAN CORPUSCULAR HGB CONC 31.1 g/dL (31-35); MEAN CORPUSCULAR VOLUME 94.3 fL (81-99); MONOCYTES # (AUTO) 0.5 (0.2-0.8); MONOCYTES % 6.5 % (4.4-11.3); NEUTROPHILS # (AUTO) 4.3 (2.1-6.9); NEUTROPHILS % 59.9 % (38.7-80.0); PLATELET COUNT 297 x10e3/uL (140-360); RED BLOOD COUNT 3.71 x10e6/uL (3.6-5.1); RED CELL DISTRIBUTION WIDTH 14.2 % (11.7-14.4)
[2021-09-11 15:25] LABS: INR 0.81; PARTIAL THROMBOPLASTIN TIME 26.8 seconds (23.8-35.5)
[2021-09-11 15:46] LABS: ALBUMIN 3.4 g/dL (3.5-5.0); ANION GAP 19.7 mmol/L (8-16); CALCIUM 8.9 mg/dL (8.4-10.2); CREATININE, SERUM 0.74 mg/dL (0.57-1.11); POTASSIUM 4.7 mmol/L (3.5-5.1)
[2021-09-11] MEDS ORDERED: SODIUM CHLORIDE 0.9% 100 ML ONE (16:05)
[2021-09-11] MEDS ORDERED: IOPAMIDOL 370 MG/ML 100 ML INFUS..BTL INJ ONE (16:06)
== END 2021-09-11 17:41 | disposition home or self-care (01) ==
LOC: ER 15:00
DX: R47.81 Slurred speech (principal); W18.39XA Other fall on same level, initial encounter; F03.90 Unspecified dementia, unspecified severity, without behavioral disturbance, psychotic disturbance, mood disturbance, and anxiety; Z20.822 Contact with and (suspected) exposure to COVID-19
CPT/HCPCS: 36415; 70496; 70498; 80053; 84484; 85025; 85610; 85730; 93005; 99284; J7050; Q9967; U0002

== ENCOUNTER → 2021-09-24 | Outpatient (CLI) | payer MEDICARE ==
[~2021-09-24] MED LIST changes: +LORAZEPAM INJ 2 MG/ML VIAL ONE
[2021-09-24 12:57] VITALS: BP 148/72
[2021-09-24 13:00] VITALS: BP 140/66
[2021-09-24 13:15] VITALS: BP 90/74
[2021-09-24 13:30] VITALS: BP 113/64
[2021-09-24 13:45] VITALS: BP 130/63
== END ==
LOC: MRI 10:59
PROVIDERS: ATTEND Student in an Organized Health Care Education/Training Program
DX: R29.2 Abnormal reflex (principal); R47.81 Slurred speech; W18.30XA Fall on same level, unspecified, initial encounter; M50.31 Other cervical disc degeneration, high cervical region; M48.02 Spinal stenosis, cervical region
CPT/HCPCS: 70551; 72141; J2060

== ENCOUNTER 2024-08-15 13:26 | Emergency (ER) | payer OTHER, MEDICARE ==
[~2024-08-15] VITALS: Ht 162.6 cm; Wt 64.4 kg
[~2024-08-15 13:26] MED LIST changes: -LORAZEPAM INJ 2 MG/ML VIAL ONE
[2024-08-15 15:00] VITALS: TEMP 98.3
[2024-08-15 15:22] VITALS: PULSE 71; RESP 16; O2SAT 99
== END 2024-08-15 18:55 | disposition home or self-care (01) ==
LOC: ER 14:16
DX: S00.83XA Contusion of other part of head, initial encounter (principal); R51.9 Headache, unspecified; W18.39XA Other fall on same level, initial encounter; Y93.01 Activity, walking, marching and hiking; Y92.89 Other specified places as the place of occurrence of the external cause; I10 Essential (primary) hypertension; E11.65 Type 2 diabetes mellitus with hyperglycemia; E03.9 Hypothyroidism, unspecified; F03.90 Unspecified dementia, unspecified severity, without behavioral disturbance, psychotic disturbance, mood disturbance, and anxiety; K21.9 Gastro-esophageal reflux disease without esophagitis; F41.9 Anxiety disorder, unspecified; F32.A Depression, unspecified; M54.9 Dorsalgia, unspecified; G89.29 Other chronic pain
CPT/HCPCS: 36415; 70450; 72125; 82948; 99283